=== PATIENT | male | born 1965 | race Caucasian/White ===

== ENCOUNTER → 2019-05-13 | Outpatient (CLI) | payer OTHER ==
--- NOTE | 2019-05-13 14:44 | RAD ---
MR of the right shoulder HISTORY: Right shoulder pain. TECHNIQUE: Routine multiplanar sequences are obtained. FINDINGS: There is moderate motion degradation. Acromioclavicular joint is mildly degenerative. No evidence of full-thickness supraspinatus or infraspinatus tendon tear. Subscapularis tendon partial tearing. No advanced muscle atrophy. No significant subdeltoid bursal effusion. No significant glenohumeral joint effusion. There is a small cyst at the anterosuperior labrum. No evidence of labral tear. The biceps tendon is subluxed medially, perched over the lesser tuberosity. No acute fracture. No aggressive bone destruction. IMPRESSION: 1. Moderate motion degradation. 2. Partial subscapularis tendon tear. 3. Biceps tendinosis with medial subluxation. Electronically signed by: Reno Patel MD (05/13/2019 2:41 PM) [id number]
== END ==
LOC: MRI 11:49
PROVIDERS: ATTEND Family Medicine
DX: S46.811A Strain of other muscles, fascia and tendons at shoulder and upper arm level, right arm, initial encounter (principal); M75.21 Bicipital tendinitis, right shoulder; X58.XXXA Exposure to other specified factors, initial encounter; Y93.89 Activity, other specified; Y92.89 Other specified places as the place of occurrence of the external cause; Y99.8 Other external cause status
CPT/HCPCS: 73221

== ENCOUNTER → 2019-09-03 | Outpatient (CLI) | payer OTHER ==
[~2019-09-03] MED LIST: ATOR20TA58 PO; BENZ0.5T32 PO; BUSP15TA PO; IBUP-577 PO; OMEP20TA8 PO; OXYC1TAB19 PO; QUET50TA5 PO
== END | disposition home or self-care (01) ==
LOC: LAB 14:06
PROVIDERS: ATTEND Orthopaedic Surgery
DX: Z11.59 Encounter for screening for other viral diseases (principal)
CPT/HCPCS: U0003-CS

== ENCOUNTER 2019-09-07 09:52 | Day surgery (SDC) | payer OTHER ==
[~2019-09-07] VITALS: Ht 177.8 cm; Wt 62.6 kg
[~2019-09-07 09:52] MED LIST changes: +HYDROmorphone 2 MG/ML VIAL IV PRN; +IV RINGERS,LACTATED 1000ML 1,000 ML IV SCH; +MORPHINE SULFATE 2 MG/ML VIAL. IV PRN; +ONDANSETRON PF 4 MG/2 ML VIAL. IV PRN; -OXYC1TAB19 PO; +PROCHLORPERAZINE 10 MG/2 ML VIAL. IV PRN; +ceFAZolin SODIUM IV Push 1 GM VIAL. IVP ONE; +fentaNYL PF VIAL 100 MCG/2 ML VIAL IV PRN
[2019-09-07] MEDS ORDERED: ceFAZolin SODIUM IV Push 1 GM VIAL. IVP ONE (10:16)
[2019-09-07] MEDS ORDERED: BUPIVACAINE-EPI 0.5%-1:200000 MPF 30 ML VIAL. ONE (10:58)
[2019-09-07] MEDS ORDERED: LIDOCAINE 1% PF 2 ML VIAL. ONE (10:59)
[2019-09-07] MEDS ORDERED: BUPIVACAINE MPF 0.5% 30 ML VIAL. ONE (10:59)
[2019-09-07] MEDS ORDERED: MIDAZOLAM HCL/PF 2 MG/2 ML VIAL. ONE (11:06)
[2019-09-07] MEDS ORDERED: fentaNYL PF VIAL 100 MCG/2 ML VIAL ONE (11:18)
[2019-09-07] MEDS ORDERED: ROCURONIUM 50 MG/5 ML VIAL. ONE (11:18)
[2019-09-07] MEDS ORDERED: DEXAMETHASONE SOD PHOS 4 MG/ML VIAL ONE (11:19)
[2019-09-07] MEDS ORDERED: LIDOCAINE 2% PF 5 ML VIAL. ONE (11:19)
[2019-09-07] MEDS ORDERED: NEOSTIGMINE METHYLSULFATE 5 MG/5 ML SYRINGE. ONE (11:19)
[2019-09-07] MEDS ORDERED: ONDANSETRON PF 4 MG/2 ML VIAL. ONE (11:19)
[2019-09-07] MEDS ORDERED: PROPOFOL 10 MG/ML (20ML) VIAL. IV ONE (11:19)
[2019-09-07] MEDS ORDERED: GLYCOPYRROLATE 1 MG/5 ML VIAL. ONE (11:19)
[2019-09-07] MEDS ORDERED: EPINEPHrine VIAL 30 MG/30 ML VIAL ONE (11:43)
[2019-09-07] MEDS ORDERED: oxyCODONE/APAP 7.5/325 1 TAB TABLET PO ONE (13:30)
[2019-09-07] MEDS ORDERED: OXYC1TAB19 PO (13:33)
--- NOTE | 2019-09-07 13:38 | DISCH ---
DISCHARGE INSTRUCTIONS Condition on Discharge Condition on Discharge: Stable Activity After Discharge Activity Instructions for Disc: Other, see below (5 pounds limit lifting with elbow flexion until 6 weeks postoperatively) Lifting Instructions after Dis: No heavy lifting, No pulling or pushing Weight Bearing Status after Di: Other, see below Diet after Discharge Diet after Discharge: Regular Wound Incision Care Wound/Incision Care: Ice to area for comfort, Change dressing (Remove dressing in 2 days may then shower) Contacting the DRPablo after DC Call your doctor for: Concerns you may have Follow-Up Follow up with: Dr. Boone 1 week LATHA BOONE MD Sep 07, 2019 13:38
--- NOTE | 2019-09-07 13:46 | PDOC4 ---
Operative Note Operative Note Date of surgery: 09/07/2019 Preoperative diagnosis: Partial subscapularis tear and biceps tendon subluxation fraying Postoperative diagnosis: Same with undersurface supraspinatus tear type II SLAP tear and partial-thickness injury to subscapularis and supraspinatus Operative procedure: Right shoulder arthroscopy biceps tenodesis extensive debridement of labrum partial-thickness supraspinatus and subscapularis tears chondroplasty humeral head Surgeon: Mely [employer] Operator: Graham Key first officer and flight instructor Anesthesia: General plus scalene block Estimated blood loss: 15 cc Complications: None Operative indications: Please see my orthopedic clinic note for detailed operative indications and note that Mr. Hernandez had severe right shoulder pain with painful popping and weakness MRI had shown biceps fraying superior labral injury and a subscapularis tear. I had gone over with him risks benefits postoperative course of the operative treatment which would be an indicated biceps tenodesis possible repair of the subscapularis and any other addressing of anatomic findings intraoperatively. All his questions were answered he is verbally understanding of the potentially long recovery process possibility of continued pain infection nerve or blood vessel damage medical or other anesthetic complications among others and wants to proceed with surgical evaluation and treatment. Operative text: Patient was identified procedure verified patient placed in the supine position on the operating table. After adequate amounts of general anesthesia plus a pre-existing interscalene block were obtained to the right shoulder he was placed decubitus position right side up with the beanbag all bony prominences were well-padded and the shoulder was examined under anesthesia found to have full range of motion and no instability. The right shoulder was then prepped and draped in standard sterile fashion and after timeout was performed patient procedure identified and verified right upper extremity was placed in the arthroscopic arm burk with a total of 10 pounds of traction. A standard posterior portal was established an anterior portal established using spinal needle localization and the shoulder joint was systematically examined. He was noted to have severe fraying and subluxation of the biceps tendon a partial-thickness tear of the subscapularis which upon debridement was noted to have the remainder of the insertion intact and did not require further repair. He likewise had a partial thickness tear of the supraspinatus insertion which was debrided back to stable tissue and likewise was probably between 20 and 25% thickness and did not require formal repair. He did have a type II SLAP tear biceps tendon was tagged and divided via electrocautery remainder of the labrum was debrided with the arthroscopic shaver and electrocautery to achieve stable tissue he also had a partial thickness cartilage flap tear that was debrided back to stable tissue with the arthroscopic shaver. Biceps was visualized in the upper portion of the groove and released and a 8 mm hole was drilled in the lower portion of the bicipital groove and biceps tendon was whipstitched and tensioned appropriately and anchored with a [facility] [employer] bolt type anchor with excellent tensioning and fixation noted after trimming the biceps appropriately. The joint was drained of arthroscopic fluid portals were closed with nylon suture sterile dressings were applied patient was placed in a sling returned to recovery room in stable condition having tolerated procedure well. Graham peña assist was present for the procedure assisted in the yao tejeda prepping draping retraction and closure LATHA MATHIS MD Sep 07, 2019 13:46
[2019-09-07] MEDS: hydrALAZINE 20 MG/ML VIAL. IVP PRN ×2 (14:24→14:45)
[2019-09-07 14:55] VITALS: BP 132/86
== END 2019-09-07 15:30 | disposition home or self-care (01) ==
LOC: SURG 09:52
PROVIDERS: ATTEND Orthopaedic Surgery
DX: S43.431A Superior glenoid labrum lesion of right shoulder, initial encounter (principal); M75.111 Incomplete rotator cuff tear or rupture of right shoulder, not specified as traumatic; M66.811 Spontaneous rupture of other tendons, right shoulder; F41.9 Anxiety disorder, unspecified; F32.9 Major depressive disorder, single episode, unspecified; E78.00 Pure hypercholesterolemia, unspecified; Z87.891 Personal history of nicotine dependence; X58.XXXA Exposure to other specified factors, initial encounter; Y93.89 Activity, other specified; Y92.89 Other specified places as the place of occurrence of the external cause
CPT/HCPCS: 29823; 29828; 64415; A7015; C1713; J0171; J0360; J0690; J1100; J2250; J2405; J2704; J2710; J3010; J3490; J7120; A4565